=== PATIENT | female | born 1950 | race Caucasian/White ===

== ENCOUNTER → 2016-10-02 | Day surgery (SDC) | payer OTHER ==
[~2016-10-02] MED LIST: AMLO1CAP12 PO; ASPI-482 PO; ATOR40TA59 PO; ESCI20TA10 PO; FENTANYL PF 100 MCG/2 ML VIAL. IV PRN; HYDROMORPHONE 2 MG/ML VIAL. IV PRN; IV RINGERS,LACTATED 1000ML 1,000 ML IV ONE; IV RINGERS,LACTATED 1000ML 1,000 ML IV SCH; LIDOCAINE 1% 1 ML SYRINGE. ID PRN; LIDOCAINE 2% PF Vial for OR 5 ML VIAL. ONE; MORPHINE SULFATE 2 MG/ML DISP.SYRIN. IV PRN; ONDANSETRON PF 4 MG/2 ML VIAL. IV PRN; PANT40TA5 PO; PROCHLORPERAZINE 10 MG/2 ML VIAL. IV PRN; PROPOFOL 20 ML IV ONE; TRAZ50TA15 PO
[2016-10-02 08:34] VITALS: BP 109/66
== END | disposition home or self-care (01) ==
LOC: ENDOS 07:07
PROVIDERS: ATTEND Internal Medicine Gastroenterology
DX: K64.0 First degree hemorrhoids (principal); I10 Essential (primary) hypertension; E78.5 Hyperlipidemia, unspecified; F41.9 Anxiety disorder, unspecified; Z80.0 Family history of malignant neoplasm of digestive organs; Z86.73 Personal history of transient ischemic attack (TIA), and cerebral infarction without residual deficits; Z90.49 Acquired absence of other specified parts of digestive tract; Z90.710 Acquired absence of both cervix and uterus
CPT/HCPCS: 45378; G0500; J2704

== ENCOUNTER → 2018-12-20 | Outpatient (CLI) | payer MEDICARE, OTHER ==
[2016-10-02 08:34] VITALS: BP 109/66
[~2018-12-20] MED LIST changes: -ESCI20TA10 PO; -FENTANYL PF 100 MCG/2 ML VIAL. IV PRN; -HYDROMORPHONE 2 MG/ML VIAL. IV PRN; -IV RINGERS,LACTATED 1000ML 1,000 ML IV ONE; -IV RINGERS,LACTATED 1000ML 1,000 ML IV SCH; +LEXAPRO20 MG PO; -LIDOCAINE 1% 1 ML SYRINGE. ID PRN; -LIDOCAINE 2% PF Vial for OR 5 ML VIAL. ONE; -MORPHINE SULFATE 2 MG/ML DISP.SYRIN. IV PRN; -ONDANSETRON PF 4 MG/2 ML VIAL. IV PRN; -PANT40TA5 PO; +PANT40TA77 PO; -PROCHLORPERAZINE 10 MG/2 ML VIAL. IV PRN; -PROPOFOL 20 ML IV ONE; +TRAZ-118 PO; -TRAZ50TA15 PO
--- NOTE | 2018-12-20 13:54 | KCIC ---
MR of the right knee HISTORY: Right knee pain after an injury 2.5 months ago. Medial pain and swelling. TECHNIQUE: Routine multiplanar sequences are obtained. FINDINGS: Tiny radial defect at the posterior horn of the medial meniscus. Mild irregularity of the free margin of the posterior horn of the lateral meniscus but no definitive tear. Anterior and posterior cruciate ligaments are intact. Medial collateral ligament is intact. Iliotibial band unremarkable. Fibular collateral ligament, biceps femoris tendon and popliteus tendon are intact. Extensor mechanism is intact. Small joint effusion. Small Carson's cyst. Mild disorganized fluid dissecting below the cyst. 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 No aggressive bone destruction. No acute fracture. IMPRESSION: 1. Tiny radial tear at the free margin of the posterior horn of the medial meniscus. 2. Mild heterogeneity of the free margin of the lateral meniscus without definitive tear. 3. Primary osteoarthritis. 4. Small Carson's cyst with mild leakage or dissection. Electronically signed by: George Ireland MD (12/20/2018 1:51 PM) [id number]
== END | disposition home or self-care (01) ==
LOC: KCIC MRI 12:56
PROVIDERS: ATTEND Physician Assistant Medical
DX: S83.241A Other tear of medial meniscus, current injury, right knee, initial encounter (principal); M25.461 Effusion, right knee; M71.21 Synovial cyst of popliteal space [Baker], right knee; M17.11 Unilateral primary osteoarthritis, right knee; M94.261 Chondromalacia, right knee; X58.XXXA Exposure to other specified factors, initial encounter; Y93.89 Activity, other specified; Y92.89 Other specified places as the place of occurrence of the external cause; Y99.8 Other external cause status
CPT/HCPCS: 73721

== ENCOUNTER → 2020-05-06 | Outpatient (CLI) | payer MEDICARE, OTHER ==
[2016-10-02 08:34] VITALS: BP 109/66
[~2020-05-06] MED LIST changes: -AMLO1CAP12 PO; +AMLO1CAP13 PO
--- NOTE | 2020-05-06 15:48 | KCIC ---
BRAIN W/O CONTRAST Date: 05/06/2020 2:00 PM Indication: HISTORY OF TIA Comparison: None. Technique: Multiplanar multisequence MRI of the brain was performed without intravenous contrast using the standard protocol. Findings: No acute infarct. No acute hemorrhage. The ventricles are normal in size and configuration without hydrocephalus. Mild scattered FLAIR hyperintensities in the subcortical and periventricular deep white matter, a nonspecific finding, most commonly seen with chronic small vessel ischemic disease. The scalp and calvarium are normal. The pituitary and sella are normal. No Chiari malformation. The visualized upper cervical spine is normal. The visualized orbits and globes are normal. Mild maxillary sinus disease. The mastoid air cells are clear. Normal flow voids within the vertebral, basilar, and internal carotid arteries indicating patency. IMPRESSION: No acute intracranial process. Mild scattered FLAIR hyperintensities in the subcortical and periventricular deep white matter, a nonspecific finding, most commonly seen with chronic small vessel ischemic disease. Electronically signed by: Melvin Giraldo MD (05/06/2020 3:45 PM) [id number]
== END ==
LOC: KCIC MRI 13:43
PROVIDERS: ATTEND Physician Assistant Medical
DX: I67.82 Cerebral ischemia (principal); Z86.73 Personal history of transient ischemic attack (TIA), and cerebral infarction without residual deficits
CPT/HCPCS: 70551

== ENCOUNTER → 2021-10-20 | Outpatient (CLI) | payer MEDICARE, OTHER ==
[2016-10-02 08:34] VITALS: BP 109/66
--- NOTE | 2021-10-20 12:36 | KCIC ---
Exam Date: 10/20/2021 10:15 AM MRI LEFT LOWER EXTREMITY JOINT WITHOUT Indication: Reason: LEFT KNEE PAIN/MENISCAL TEAR / Spl. Instructions: Four previous surgeries. / Hist ory: Known white's cyst and medial meniscal tear but no intervention. Pain.. TECHNIQUE: Routine multiplanar MR imaging of the knee was performed without contrast. FINDINGS: Postoperative changes of ACL graft reconstruction are noted within an intact ACL graft. No evidence for arthrofibrosis is seen. Decreased size of the body and posterior horn of the medial meniscus is consistent with prior partial meniscectomy and/or complex tearing. Irregularity and abnormal signal of the body and posterior hor n of the lateral meniscus is consistent with complex tearing. The posterior cruciate ligament, medial collateral ligament, and lateral collateral ligament complex are intact. Patellofemoral extensor mechanism and popliteus tendon are within normal limits. Tricompartment diffuse chondral thinning is noted, with small full-thickness chondral defects in the lateral compartment and partial thickness chondral defects in the medial and patellofemoral compartme nts. Tricompartment osteophytes are noted. No acute fracture is seen. Physiologic joint fluid is present. There is a small popliteal cyst. IMPRESSION: Intact ACL graft. No arthrofibrosis. Prior partial meniscectomy versus complex tearing of the medial meniscus. Complex tearing noted invo lving the lateral meniscus. Tricompartment chondral thinning with full-thickness chondral defects in the lateral compartment. Small popliteal cyst noted. Electronically signed by: Jt Martinez MD (10/20/2021 12:34 PM) [id number]
== END ==
LOC: KCIC MRI 09:59
PROVIDERS: ATTEND Physician Assistant Medical
DX: S83.272A Complex tear of lateral meniscus, current injury, left knee, initial encounter (principal); M71.22 Synovial cyst of popliteal space [Baker], left knee; M25.862 Other specified joint disorders, left knee; Z98.890 Other specified postprocedural states; X58.XXXA Exposure to other specified factors, initial encounter; Y93.89 Activity, other specified; Y92.89 Other specified places as the place of occurrence of the external cause; Y99.8 Other external cause status
CPT/HCPCS: 73721